=== PATIENT | male | born 1970 | race Two or more races ===

== ENCOUNTER 2025-01-31 05:57 | Emergency (ER) | payer MEDICAID, OTHER ==
[~2025-01-31] VITALS: Ht 190.5 cm; Wt 88.8 kg
--- NOTE | 2025-01-31 06:46 | ED.PDOC ---
Musculoskeletal HPI Comments THIS IS A 54 YEAR-OLD MALE WHO PRESENTS TO THE ED WITH A CHIEF COMPLAINT OF R HAND PAIN WITH ASSOCIATED SWELLING FOR THE PAST X2 WEEKS S/P WORK RELATED INJURY. 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 PATIENT STATES THE PAIN HAS BEEN SINCE WORSENING FOR THE PAST X2 WEEKS WITH NO ALLEVIATION. PATIENT IS ALERT, ORIENTED X 4, AND HAS STEADY GAIT. Chief Complaint: Upper Extremity Time Seen by MD: 06:39 Reviewed Notes: Nurses Notes, Medications, Allergies Allergies: Coded Allergies: NO KNOWN ALLERGIES (Unverified , 01/31/25) Home Meds Active Scripts Indomethacin (Indomethacin) 50 Mg Cap, 1 CAP PO TID, #30 CAP Prov:LUTHER ISRAEL 01/31/25 Information Source: Patient Mode of Arrival: Ambulatory Location: Right Extremity Location: Hand Timing: Days, Weeks Prehospital treatment: None Severity: Moderate Able to Move Extremity: Yes Pain: Moderate Hand Dominance: Right Mechanism: Punch Circumstances: Work Related Onset of Symptoms: After Trauma Symptoms: Swelling, Pain DVT Risk Factors: NONE Last Tetanus: UTD Associated signs and symptoms: Hand pain Past Medical History PAST MEDICAL HISTORY: Denies Surgical History: Denies all surgeries Family History Family History: Reviewed,noncontributory to illness, No family hx of Cancer, No family hx of DM, No family hx of Heart michael, No family hx of HTN, No family hx ofKidney michael, No family hx of Liver michael, No family hx of Lung michael, No family hx of Stroke Social History Smoker: Non-Smoker Alcohol: Denies ETOH Use Drugs: Denies Drug Use Lives In: Home Constitutional: denies: chills, diaphoresis, fatigue, fever, malaise, sweats, weakness, others EENTM: denies: blurred vision, double vision, ear bleeding, ear discharge, ear drainage, ear pain, ear ringing, eye pain, eye redness, hearing loss, mouth pain, mouth swelling, nasal discharge, nose bleeding, nose congestion, nose pain, photophobia, tearing, throat pain, throat swelling, voice changes, others Respiratory: denies: cough, hemoptysis, orthopnea, SOB at rest, shortness of breath, SOB with excertion, stridor, wheezing, others Cardiovascular: denies: chest pain, dizzy spells, diaphoresis, Dyspnea on exertion, edema, irregular heart beat, left arm pain, lightheadedness, palpitations, PND, syncope, others Gastrointestinal: denies: abdomen distended, abdominal pain, blood streaked bowels, constipated, diarrhea, dysphagia, difficulty swallowing, hematemesis, melena, nausea, poor appetite, poor fluid intake, rectal bleeding, rectal pain, vomiting, others Genitourinary: denies: burning, dysuria, flank pain, frequency, hematuria, incontinence, penile discharge, penile sore, pain, testicle pain, testicle swelling, urgency, others Neurological: denies: dizziness, fainting, headache, left sided numbness, left sided weakness, numbness, paresthesia, pre-existing deficit, right sided numbne ss, right sided weakness, seizure, speech problems, tingling, tremors, weakness, others Musculoskeletal: reports: joint pain, joint swelling, others (R HAND PAIN ); denies: back pain, gout, muscle pain, muscle stiffness, neck pain Integumetry: denies: bruises, change in color, change in hair/nails, dryness, laceration, lesions, lumps, rash, wounds, others Allergic/Immunocompromised: denies: Difficulty Healing, Frequent Infections, Hives, Itching, others Hematologic/Lymphatic: denies: anemia, blood clots, easy bleeding, easy bruising, swollen glands, others Endocrine: denies: excessive hunger, excessive sweating, excessive thirst, excessive urination, flushing, intolerance to cold, intolerance to heat, unexplained weight gain, unexplained weight loss, others Psychiatric: denies: anxiety, bipolar disorder, depression, hopeless, panic disorder, schizophrenia, sleepless, suicidal, others All Other Systems: Reviewed and Negative Physical Exam General Appearance: No Apparent Distress, Normal HEENT: Normal ENT Inspection, PERRL/EOMI, Pharynx Normal, TMs Normal Neck: Full Range of Motion, Non-Tender, Normal, Normal Inspection Respiratory: Chest Non-Tender, Lungs Clear, No Accessory Muscle Use, No Respiratory Distress, Normal Breath Sounds Cardiovascular: No Edema, No JVD, No Murmur, No Gallop, Normal Peripheral Pulses, Regular Rate/Rhythm Breast Exam: Deferred Gastrointestinal: No Organomegaly, Non Tender, No Pulsatile Mass, Normal Bowel Sounds, Soft Genitalia: Deferred Pelvic: Deferred Rectal: Deferred Extremities: Decreased range of motion (SLIGHTLY. ), No calf tenderness, Normal capillary refill, No pedal edema, Swelling (TENDERNESS AND SWELLING ON RIGHT DORSAL HAND, NO DEFORMITY. ), Tender (AND MILD SWELLING ON RIGHT DORSAL HAND, NO DEFORMITY. 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 Was a procedure done?: No Differential Diagnosis EXT Differential Diagnosis: Fracture, Sprain, Dislocation, Contusion, Strain, Bursitis X-Ray, Labs, Meds, VS Vital Signs Date Time Temp Pulse Resp B/P (MAP) Pulse Ox O2 Delivery O2 Flow Rate FiO2 01/31/25 06:48 97.9 57 18 148/84 (105) 100 97.9 01/31/25 06:48 57 18 100 Room Air 01/31/25 06:00 97.9 57 18 148/84 100 97.9 PATIENT: CITLALLI JARRETTT: [id number]: [id number] : 1970 LOC: ER ROOM / BED: / AGE / SEX: 54 / M ADM STATUS: [facility] ER SERVICE 5 ORDERING PHYSICIAN: LUTHER ISRAEL PROCEDURE(s): RHAN - R HAND 3 VIEW XRAY REASON: INJURY ORDER NUMBER(s): [id number], ACCESSION NUMBER(s): [id number] XY R HAND 3 VIEW XRAY, INDICATION: INJURY TECHNICAL DATA: Frontal, oblique and lateral views were obtained of the right hand. COMPARISON: None FINDINGS: No fracture is identified. Joint spaces are maintained. Alignment is anatomic. Soft tissues are within normal limits. IMPRESSION: 1. No acute fracture or dislocation of the right hand. ATED BY: CAPRICE FLOR MD DICTATED DATE/TIME: 01/31/25738 SIGNED BY: CAPRICE FLOR MD SIGNED DATE/TIME: 01/31/25738 CC: X-Ray, Labs, Meds, VS Comment EXTERNAL MEDICAL RECORDS REVIEWED: [NONE] INDEPENDENT HISTORIANS: [NONE] SOCIAL DETERMINANTS OF HEALTH: [NONE] LABS ORDERED: NONE REVIEWED AND INTERPRETED RESULTS: NONE IMAGING ORDERED: R HAND XRAY: NO FX AND DISLOCATION, READ BY ME, PENDING RADIOL OGIST READING. TREATMENTS ORDERED: NONE PROCEDURES PERFORMED: NONE CRITICAL CARE TIME: NONE I HAVE DISCUSSED THE PATIENT WITH THE ATTENDING PHYSICIAN, DR. CASTRO, AND HE AGREES WITH THE PATIENT'S PLAN OF CARE AND DISPOSITION. BASED ON HISTORY OF PRESENT ILLNESS, AND PHYSICAL EXAM, PATIENT WILL BE DISCHARGED HOME. DISCUSSED PLAN FOR DISCHARGE HOME WITH RX INDOMETHACIN 50MG. MEDICATION WARNINGS GIVEN. SHARED DECISION MAKING: DISCUSSED WITH PATIENT THAT THEIR WORKUP WAS NORMAL. PATIENT INSTRUCTED TO FOLLOW UP WITH PRIMARY CARE PROVIDER IN 1-2 DAYS FOR RE- EVALUATION OF SYMPTOMS. PATIENT VERBALIZES UNDERSTANDING TO RETURN TO ED FOR NEW OR WORSENING SYMPTOMS OR IF FOLLOW UP WITH PCP CANNOT BE OBTAINED. PATIENT FEELS COMFORTABLE GOING HOME AT THIS TIME. ALL QUESTIONS ADDRESSED AT TIME OF DISCHARGE. PATIENT WAS RUDE AND DEMANDED LIGHT DUTY JOB. PATIENT WAS TOLD WE DO NOT DO LIGHT DUTY JOB HERE IN THE ED, AND HE NEEDS TO SEE PCP. PATIENT WAS UPSET, AND ESCALATED THE SITUATION. WE DID LIGHT DUTY JOB HERE IN THE ED FOR X1 WEEK ONLY. PATIENT WAS TOLD TO FOLLOW UP WITH PCP FOR FURTHER EVALUATION. Images Reviewed?: Images reviewed and evaluated by me Time of 1ST Reevaluation: 07:33 Reevaluation 1ST: Unchanged Patient Education/Counseling: Diagnosis, Treatment, Need For Follow Up Family Education/Counseling: Diagnosis, Treatment, No Family Present Medical Screening: No EMC Exist At This Time Departure 1 Departure Time of Disposition: 07:33 Impression: Primary Impression: Sprain of right hand Qualified Codes: S63.91XA - Sprain of unspecified part of right wrist and hand, initial encounter Disposition: HOME / SELF CARE / HOMELESS Condition: Stable Additional Instructions: FOLLOW-UP WITH PCP IN 1 TO 2 DAYS. TAKE MEDICATIONS PRESCRIBED. RETURN TO ED FOR ANY NEW OR WORSENING SYMPTOMS. e-Prescriptions Indomethacin (Indomethacin) 50 Mg Cap 1 CAP PO TID, #30 CAP Prov: LUTHER ISRAEL 01/31/25 Discharged With: Self Critical Care Note Critical Care Time?: No Stability Stability form required: No Heart Score Heart Score: Heart Score Response (Comments) Value History N/A 0 EKG N/A 0 Age N/A 0 Risk Factors N/A 0 Troponin N/A 0 Total 0 I personally scribed for LUTHER ISRAEL ([email or web address]) on 01/31/25 at 06:46. Electronically submitted by Jeri Alfaro ([email or web address]). I personally scribed for LUTHER ISRAEL ([email or web address]) on 01/31/25 at 06:46. Electronically submitted by Jeri Alfaro ([email or web address]). I personally scribed for LUTHER ISRAEL ([email or web address]) on 01/31/25 at 07:19. Electronically submitted by Jeri Alfaro ([email or web address]). LUTHER ISRAEL Jan 31, 2025 06:46
[2025-01-31 06:48] VITALS: BP 148/84; PULSE 57; RESP 18; TEMP 97.9; O2SAT 100
[2025-01-31] MEDS ORDERED: INDO50CA82 PO (07:19)
--- NOTE | 2025-01-31 07:42 | DVH ---
XY R HAND 3 VIEW XRAY, INDICATION: INJURY TECHNICAL DATA: Frontal, oblique and lateral views were obtained of the right hand. COMPARISON: None FINDINGS: No fracture is identified. Joint spaces are maintained. Alignment is anatomic. Soft tissues are withi n normal limits. IMPRESSION: 1. No acute fracture or dislocation of the right hand.
== END 2025-01-31 07:47 | disposition home or self-care (01) ==
LOC: ER 06:04
DX: S63.8X1A Sprain of other part of right wrist and hand, initial encounter (principal); X58.XXXA Exposure to other specified factors, initial encounter; Y93.89 Activity, other specified; Y92.89 Other specified places as the place of occurrence of the external cause; Y99.8 Other external cause status
CPT/HCPCS: 73130

== ENCOUNTER 2025-05-23 12:54 | Emergency (ER) | payer SELFPAY ==
[~2025-05-23] VITALS: Ht 190.5 cm; Wt 95.0 kg
[~2025-05-23 12:54] MED LIST: INDO50CA82 PO
[2025-05-23 12:55] VITALS: TEMP 98.2
[2025-05-23 13:20] LABS: Hematocrit 44.1 % (41.0-53.0); Hemoglobin 14.8 g/dL (13.5-17.5); Mean Corpuscular Hemoglobin 30.5 pg (28.0-32.0); Mean Corpuscular Volume 90.7 fL (80.0-100.0); Nucleated Red Blood Cells % 0.0 %
--- NOTE | 2025-05-23 13:23 | ED.PDOC ---
HPI Comments 55-year-old male who presents to the ED for chief complaint of chest pain. Patient states that earlier this morning he states his blood pressure was elevated and states he started to have diffuse chest pains across his chest. Patient states the pain is intermittent, poking like in sensation with no associated exacerbating or relieving factors. Patient otherwise denies shortness a breath diaphoresis palpitations nausea vomiting fever or chills. Patient in the ED has noted blood pressure 157/70 with otherwise stable vitals. Patient otherwise denies any other symptoms. Chief Complaint: Chest Pain Time Seen by MD: 13:12 Reviewed Notes: Medications, Allergies Allergies: Coded Allergies: NO KNOWN ALLERGIES (Unverified , 01/31/25) Home Meds Active Scripts Indomethacin (Indomethacin) 50 Mg Cap, 1 CAP PO TID, #30 CAP Prov:LUTHER ISRAEL 01/31/25 Information Source: Patient Mode of Arrival: Ambulatory Brought in by: self Past Medical History PAST MEDICAL HISTORY: Denies Surgical History: Denies all surgeries Family History Family History: Reviewed,noncontributory to illness, No family hx of Cancer, No family hx of DM, No family hx of Heart michael, No family hx of HTN, No family hx ofKidney michael, No family hx of Liver michael, No family hx of Lung michael, No family hx of Stroke Social History Smoker: Non-Smoker Alcohol: Denies ETOH Use Drugs: Denies Drug Use Lives In: Home Constitutional: denies: chills, diaphoresis, fatigue, fever, malaise, sweats, weakness, others EENTM: denies: blurred vision, double vision, ear bleeding, ear discharge, ear drainage, ear pain, ear ringing, eye pain, eye redness, hearing loss, mouth pain, mouth swelling, nasal discharge, nose bleeding, nose congestion, nose pain, photophobia, tearing, throat pain, throat swelling, voice changes, others Respiratory: denies: cough, hemoptysis, orthopnea, SOB at rest, shortness of breath, SOB with excertion, stridor, wheezing, others Cardiovascular: reports: chest pain; denies: dizzy spells, diaphoresis, Dyspnea on exertion, edema, irregular heart beat, left arm pain, lightheadedness, palpitations, PND, syncope, others Gastrointestinal: denies: abdomen distended, abdominal pain, blood streaked bowels, constipated, diarrhea, dysphagia, difficulty swallowing, hematemesis, melena, nausea, poor appetite, poor fluid intake, rectal bleeding, rectal pain, vomiting, others Genitourinary: denies: burning, dysuria, flank pain, frequency, hematuria, incontinence, penile discharge, penile sore, pain, testicle pain, testicle sw elling, urgency, others Neurological: denies: dizziness, fainting, headache, left sided numbness, left sided weakness, numbness, paresthesia, pre-existing deficit, right sided numbness, right sided weakness, seizure, speech problems, tingling, tremors, weakness, others Musculoskeletal: denies: back pain, gout, joint pain, joint swelling, muscle pain, muscle stiffness, neck pain, others Integumetry: denies: bruises, change in color, change in hair/nails, dryness, laceration, lesions, lumps, rash, wounds, others Allergic/Immunocompromised: denies: Difficulty Healing, Frequent Infections, Hives, Itching, others Hematologic/Lymphatic: denies: anemia, blood clots, easy bleeding, easy bruising, swollen glands, others Endocrine: denies: excessive hunger, excessive sweating, excessive thirst, excessive urination, flushing, intolerance to cold, intolerance to heat, unexplained weight gain, unexplained weight loss, others Psychiatric: denies: anxiety, bipolar disorder, depression, hopeless, panic disorder, schizophrenia, sleepless, suicidal, others All Other Systems: Reviewed and Negative Physical Exam General Appearance: Mild Distress HEENT: Pharynx Normal Neck: Normal Inspection Respiratory: No Respiratory Distress Cardiovascular: No Edema Breast Exam: Deferred Gastrointestinal: Non Tender Genitalia: Deferred Pelvic: Deferred Rectal: Deferred Extremities: No pedal edema Neurologic: No Motor Deficits Cerebellar Function: NOT DONE Reflexes: NOT DONE Skin: Normal Color Lymphatic: NOT DONE EKG EKG : Pulse Rate (adult): 74 [place]: Normal Cardiac Rhythm: NSR Block: None Hypertrophy: None ST: Normal Was a procedure done? Was a procedure done?: No CP Differential Dx Differential Diagnosis: A-fib, A-Flutter, Angina, Anxiety / Panic Attack, Electrolyte Disorder, Heart Failure, [place], PVC's, Sinus Tachycardia Differential Diagnosis: HTN Essential, HTN Accelerated, HTN Encephalopathy, Medical NonCompliance Differential Diagnosis: Angina, Chest Wall Pain, Pericarditis, Pneumonia X-Ray, Labs, Meds, VS Vital Signs Date Time Temp Pulse Resp B/P (MAP) Pulse Ox O2 Delivery O2 Flow Rate FiO2 05/23/25 13:56 82 05/23/25 13:23 74 05/23/25 12:58 74 05/23/25 12:55 98.2 74 12 157/70 99 98.2 Lab Test 05/23/25 14:52 05/23/25 13:55 05/23/25 13:54 05/23/25 13:03 Range/Units Troponin I High Sensitivity 5 4 5 </=54 ng/L Urine Color Light-orange Yellow Urine Clarity Turbid H Clear Urine pH 6.0 5.0-9.0 Urine Specific [place] 1.028 1.001-1.035 Urine Protein 1+ H Negative Urine Ketones Trace Negative Urine Blood 3+ H Negative /uL Urine Nitrite 2+ H Negative Urine Bilirubin Negative Negative Urine Urobilinogen 3 H Negative mg/dL Urine Leukocyte Esterase 3+ Negative /uL Urine RBC 87 0 - 3 /hpf Urine Microscopic WBC 388 H 0-3 /HPF Urine Squamous Epithelial Cells Few <5 /hpf Urine Bacteria None seen None Seen /hpf Urine Mucus Few None Seen Urine Glucose Normal Normal mg/dL White Blood Count 7.0 4.4-10.8 10^3/uL Red Blood Count 4.87 4.5-5.90 10^6/uL Hemoglobin 14.8 13.5-17.5 g/dL Hematocrit 44.1 41.0-53.0 % Mean Corpuscular Volume 90.7 80.0-100.0 fL Mean Corpuscular Hemoglobin 30.5 28.0-32.0 pg Mean Corpuscular Hemoglobin Concent 33.6 32.0-36.0 g/dL Red Cell Distribution Width 14.4 H 11.8-14.3 % Platelet Count 187 140-450 10^3/uL Mean Platelet Volume 7.6 6.9-10.8 fL Neutrophils (%) (Auto) 83.3 H 37.0-80.0 % Lymphocytes (%) (Auto) 9.3 L 10.0-50.0 % Monocytes (%) (Auto) 6.5 0.0-12.0 % Eosinophils (%) (Auto) 0.6 0.0-7.0 % Basophils (%) (Auto) 0.3 0.0-2.0 % Neutrophils # (Auto) 5.9 1.6-8.6 10 ^3/uL Lymphocytes # (Auto) 0.7 0.4-5.4 10 ^3/uL Monocytes # (Auto) 0.5 0-1.3 10 ^3/uL Eosinophils # (Auto) 0 0-0.8 10 ^3/uL Basophils # (Auto) 0 0-0.2 10 ^3/uL Nucleated Red Blood Cells 0.0 % Sodium Level 139 136-145 mmol/L Potassium Level 3.7 3.5-5.1 mmol/L Chloride Level 106 98-107 mmol/L Carbon Dioxide Level 28 20-31 mmol/L Anion Gap 5 5-15 Blood Urea Nitrogen 8 L 9-23 mg/dL Creatinine 1.03 0.700-1.30 mg/dL Glomerular Filtration Rate Calc 85 >90 mL/min BUN/Creatinine Ratio 7.8 L 10.0-20.0 Serum Glucose 107 H 74-106 mg/dL Calcium Level 9.3 8.7-10.4 mg/dL Lipase 31 12-53 U/L [place] [address] Ph: [phone] DIAGNOSTIC IMAGING Diagnostic Imaging Report : [id number] Signed PATIENT: ERA JARRETT ACCT: [id number] UNIT: [id number] : 1970 LOC: ER ROOM / BED: / AGE / SEX: 55 / M ADM STATUS: REG ER SERVICE 1314 ORDERING PHYSICIAN: EVERT KEMP MD PROCEDURE(s): CXR2 - CHEST TWO VIEWS ROUTINE REASON: chest pain ORDER NUMBER(s): [id number], ACCESSION NUMBER(s): [id number] XY CHEST TWO VIEWS ROUTINE CLINICAL HISTORY: chest pain COMPARISON: None TECHNIQUE: Frontal and lateral view of the chest was obtained FINDINGS: Lines and Tubes: None Lungs: No focal consolidation. Pleura: No effusion. No pneumothorax. Cardiomediastinal contours: Unremarkable Bones: No acute osseous abnormality. IMPRESSION: No acute cardiopulmonary disease. ATED BY: ELYSSA BROWN MD DICTATED DATE/TIME: 05/23/251338 SIGNED BY: ELYSSA BROWN MD SIGNED DATE/TIME: 05/23/251338 CC: Time of 1ST Reevaluation: 13:40 Reevaluation 1ST: Unchanged Patient Education/Counseling: Diagnosis, Treatment Family Education/Counseling: No Family Present SEPSIS Sepsis Screen Date sepsis recognized/suspect: May 23, 2025 Time Sepsis recognized/suspect: 1254 Recent Procedure: No On Antibiotic Therapy: No Respiratory Rate >20: No Heart Rate >90: No Temp<36 C (96.8 F) or >38.3 C: No SBP <90 or MAP <65 mmHG: No New Acute Mental Status Change: No Is the patient on CPAP, BIPAP,: No Physician Orders Chest Two Views Routine (05/23/25 13:14) Electrocardigram (05/23/25 13:01) Electrocardigram (05/23/25 14:58) Electrocardigram (05/23/25 16:01) Vital Signs Date Time Temp Pulse Resp B/P (MAP) Pulse Ox O2 Delivery O2 Flow Rate FiO2 05/23/25 13:56 82 05/23/25 13:23 74 05/23/25 12:58 74 05/23/25 12:55 98.2 74 12 157/70 99 98.2 Laboratory Tests Test 05/23/25 13:03 White Blood Count 7.0 10^3/uL (4.4-10.8) Departure 1 Departure Time of Disposition: 15:25 (Patient presented with chest pain that was concerning for possible STEMI, ACS, PE, Pneumonia, Muscle Strain, COPD, Dissection. Data: 1. I ordered and reviewed the result of at least 3 labs including a CBC, BMP, and Troponin. 2. I independently interpreted the following tests: EKG which shows normal sinus rhythm and Chest X-ray which shows a benign chest.Risk:This patient presented with a high risk of morbidity due to further diagnostic testing or treatment and may suffer from an acute cardiac or respiratory disorder. After review of all the data patient is unlikely to have a pe , dissection, and is low risk for acs. Patient is stable at this time.Workup so far is benign and patient will be discharged with outpatient followup. Patient does have a urinary tract infection we will discharge patient home.) Impression: Primary Impression: Acute cystitis Additional Impression: Acute chest pain Disposition: HOME / SELF CARE / HOMELESS Condition: Stable Additional Instructions: You presented today with chest pain. Your workup today was benign including labs, troponin, EKG, chest x-ray. Your pain may be from musculoskeletal strain, acid reflux, anxiety, or many other factors. You do have a urinary tract infection. You were prescribed antibiotics. Please take as directed. You can take Tylenol Motrin as needed for pain. It is important that he follow up with the regular doctor within 1 week to ensure you are doing better. If your symptoms worsen or you have any other concerns then please return to the emergency room. e-Prescriptions Cefdinir (Cefdinir) 300 Mg Cap 1 CAP PO BID for 7 Days, #14 CAP Prov: EVERT KEMP MD 05/23/25 Discharged With: Self Critical Care Note Critical Care Time?: No Stability Stability form required: No Heart Score Heart Score: Heart Score Response (Comments) Value History Slightly Suspicious 0 EKG Normal 0 Age 45-64 1 Risk Factors No known risk factors 0 Troponin Normal limit 0 Total 1 I personally scribed for EVERT KEMP MD ([email or web address]) on 05/23/25 at 13:23. Electronically submitted by Sierra Booker ([employer]). I personally scribed for EVERT KEMP MD ([email or web address]) on 05/23/25 at 13:58. Electronically submitted by Sierra Booker ([employer]). EVERT KEMP MD May 23, 2025 13:23
[2025-05-23 13:29] LABS: Chloride 106 mmol/L (98-107); Potassium 3.7 mmol/L (3.5-5.1); Sodium 139 mmol/L (136-145)
[2025-05-23 13:30] LABS: Anion Gap 5 (5-15); Calcium 9.3 mg/dL (8.7-10.4); Carbon Dioxide 28 mmol/L (20-31)
[2025-05-23 13:35] LABS: BUN/Creatinine Ratio 7.8 (10.0-20.0); Blood Urea Nitrogen 8 mg/dL (9-23); Glucose 107 mg/dL (74-106)
--- NOTE | 2025-05-23 13:41 | DVH ---
XY CHEST TWO VIEWS ROUTINE CLINICAL HISTORY: chest pain COMPARISON: None TECHNIQUE: Frontal and lateral view of the chest was obtained FINDINGS: Lines and Tubes: None Lungs: No focal consolidation. Pleura: No effusion. No pneumothorax. Cardiomediastinal contours: Unremarkable Bones: No acute osseous abnormality. IMPRESSION: No acute cardiopulmonary disease.
[2025-05-23 13:46] LABS: Lipase 31 U/L (12-53)
[2025-05-23 14:14] LABS: Urine Protein, UAD 1+ (Negative)
[2025-05-23 15:25] VITALS: BP 159/94; RESP 18; O2SAT 98
[2025-05-23] MEDS ORDERED: CEFD300C2 PO (15:26)
[2025-05-23 15:47] VITALS: PULSE 80
--- NOTE | 2025-05-23 18:31 | ECG ---
[facility] Test Date: 2025-05-23 Test Time: 12:58:50 Pat Name: ERA JARRETT Department: Room: Gender: M Founder Ceo & President: : 1970 Requested By: EVERT KEMP Order Number: [id number] Reading MD: Celestino Bradley Measurements Intervals [place] Rate: 74 P: -14 [place]: 164 QRS: 3 QRSD: 94 T: -23 QT: 359 QTc: 399 Interpretive Statements Sinus rhythm Consider left atrial enlargement Borderline repolarization abnormality Electronically Signed On 05-24-2025 17:25:27 PST by Celestino Bradley Please click the below link to view image of tracing.
--- NOTE | 2025-05-25 11:00 | ECG ---
[facility] Test Date: 2025-05-23 Test Time: 15:47:23 Pat Name: ERA JARRETT Department: Room: Gender: Photo Checker: STEVEN : 1970 Requested By: EVERT KEMP Order Number: [id number] Reading MD: Measurements Intervals [place] Rate: 80 P: 31 DC: 149 QRS: -8 QRSD: 94 T: 0 QT: 342 QTc: 395 Interpretive Statements Sinus rhythm Borderline T wave abnormalities Baseline wander in lead(s) V3 Please click the below link to view image of tracing.
--- NOTE | 2025-05-25 11:00 | ECG ---
[facility] Test Date: 2025-05-23 Test Time: 13:56:53 Pat Name: ERA JARRETT Department: Room: Gender: M Child Development Consultant: KRISSY : 1970 Requested By: EVERT KEMP Order Number: [id number] Reading MD: Measurements Intervals [place] Rate: 82 P: 26 [place]: 158 QRS: -6 QRSD: 87 T: -7 QT: 356 QTc: 416 Interpretive Statements Sinus rhythm Borderline T abnormalities, inferior leads Please click the below link to view image of tracing.
== END 2025-05-23 17:29 | disposition left against medical advice (07) ==
LOC: ER 12:54
DX: N30.00 Acute cystitis without hematuria (principal); R07.89 Other chest pain
CPT/HCPCS: 36415; 71046; 80048; 81001; 83690; 84484; 85025; 93005